=== PATIENT | female | born 1975 | race Caucasian/White ===

== ENCOUNTER → 2024-04-28 13:44 | Outpatient (REF) | payer BC, SELFPAY | LOC: RAD 13:44 | PROVIDERS: ATTENDING PHYSICIAN Physician Assistant | DX: Z96.89 Presence of other specified functional implants (principal) | CPT/HCPCS: 72072; 72110 ==

== ENCOUNTER → 2024-04-29 14:31 | Outpatient (REF) | payer BC, SELFPAY | LOC: PAVMRI 14:31 | PROVIDERS: ATTENDING PHYSICIAN Family Medicine | DX: G89.29 Other chronic pain (principal); M25.561 Pain in right knee | CPT/HCPCS: 73721 ==

== ENCOUNTER → 2025-03-25 07:39 | Outpatient (REF) | payer OTHER, MEDICARE, SELFPAY | LOC: MRI 07:39 | PROVIDERS: ATTENDING PHYSICIAN Specialist; FAMILY PHYSICIAN Family Medicine | DX: M54.12 Radiculopathy, cervical region (principal) | CPT/HCPCS: 72141 ==

== ENCOUNTER → 2025-04-02 07:40 | Outpatient (REF) | payer OTHER, MEDICARE, SELFPAY | LOC: MRI 07:40 | PROVIDERS: ATTENDING PHYSICIAN Physician Assistant Medical; FAMILY PHYSICIAN Family Medicine | DX: R51.9 Headache, unspecified (principal) | CPT/HCPCS: 70553; A9575 ==

== ENCOUNTER → 2025-09-24 07:58 | Outpatient (REF) | payer OTHER, MEDICARE, SELFPAY | LOC: MRI 07:58 | PROVIDERS: ATTENDING PHYSICIAN Specialist; FAMILY PHYSICIAN Family Medicine | DX: M54.16 Radiculopathy, lumbar region (principal); G90.523 Complex regional pain syndrome I of lower limb, bilateral; S39.012A Strain of muscle, fascia and tendon of lower back, initial encounter | CPT/HCPCS: 72148 ==